=== PATIENT | female | born 1955 | race Caucasian/White ===

== ENCOUNTER 2018-07-24 08:59 | Outpatient (CLI) | payer BC, SELFPAY ==
--- NOTE | 2018-07-24 08:54 | DI.RAD_ITS ---
SYMPTOM/DIAGNOSIS: RIGHT FOOT/HEEL PAIN RIGHT FOOT: No fracture or dislocation is seen. There is slight spur at the Achilles insertion on the calcaneus. There are no significant degenerative changes. IMPRESSION: No acute abnormality.
== END 2018-07-24 09:19 ==
PROVIDERS: Visit Provider Orthopaedic Surgery
DX: M79.671 Pain in right foot (principal); M77.31 Calcaneal spur, right foot
CPT/HCPCS: 73630

== ENCOUNTER 2019-03-26 00:44 | Outpatient (CLI) | payer BC, SELFPAY ==
--- NOTE | 2019-03-26 11:30 | DI.MAMMO_ITS ---
SYMPTOMS/DIAGNOSIS: SCREENING, Z12.31 MAMMOGRAM: Mammograms were interpreted according to the usual protocol including computer analysis with CAD system, tomosynthesis and C view imaging. The breasts are of moderate density with fairly symmetrical distribution of fibroglandular tissue. No dominant mass or clumped microcalcification is identified in either breast. The current examination is compared with previous examinations including July 2015 and there has been no gross interval change in appearance in comparison with the previous studies. CONCLUSION: No specific evidence of malignancy at this time. Routine screening examinations are suggested at yearly intervals in this age group according to the ACS/ACR guidelines. Category I. Breast density Category B. MQSA ASSESSMENT OF FINDINGS: Negative. Category 1. Patient will receive a letter notifying them of these results. BI-RADS category B. There are scattered areas of fibroglandular density.
== END 2019-03-26 01:04 ==
DX: Z12.31 Encounter for screening mammogram for malignant neoplasm of breast (principal)
CPT/HCPCS: 77063; 77067

== ENCOUNTER 2019-03-26 01:28 | Outpatient (CLI) | payer BC, SELFPAY ==
[2019-03-26 11:56] LABS: ALT 43 U/L (12-78); AST 24 U/L (15-37); Albumin 3.8 g/dL (3.4-5.0); Alkaline Phosphatase 108 U/L (46-116); Anion Gap 6.8 mmol/L (3-11); BUN 13 mg/dL (7-18); Bilirubin, Total 0.4 mg/dL (0.2-1.0); CO2 29.2 mmol/L (21.0-32.0); CREATININE 0.73 mg/dL (0.55-1.02); Calcium 9.1 mg/dL (8.5-10.1); Chloride 102 mmol/L (98-107); Glucose 111 mg/dL (70-100); Potassium 4.7 mmol/L (3.5-5.1); Sodium 138 mmol/L (136-145); TSH (W/Ref FT4) 0.77 uIU/mL (0.36-3.74); Total Protein 7.1 g/dL (6.4-8.2)
== END 2019-03-26 01:48 ==
DX: E03.9 Hypothyroidism, unspecified (principal); G47.00 Insomnia, unspecified; G89.29 Other chronic pain; K21.9 Gastro-esophageal reflux disease without esophagitis; M54.5 Low back pain; Z00.00 Encounter for general adult medical examination without abnormal findings
CPT/HCPCS: 36415; 80053; 84443

== ENCOUNTER 2020-03-25 02:53 | Outpatient (CLI) | payer BC, SELFPAY ==
[2020-03-25 12:04] LABS: ALT 29 U/L (14-59); AST 23 U/L (15-37); Albumin 3.8 g/dL (3.4-5.0); Alkaline Phosphatase 92 U/L (46-116); Anion Gap 6.4 mmol/L (3-11); BUN 7 mg/dL (7-18); Bilirubin, Total 0.4 mg/dL (0.2-1.0); CO2 29.6 mmol/L (21.0-32.0); Chloride 103 mmol/L (98-107); Glucose 103 mg/dL (74-106); Potassium 4.1 mmol/L (3.5-5.1); Sodium 139 mmol/L (136-145); TSH (W/Ref FT4) 0.63 uIU/mL (0.36-3.74); Total Protein 6.9 g/dL (6.4-8.2)
== END 2020-03-25 03:13 ==
DX: E03.9 Hypothyroidism, unspecified (principal); G47.00 Insomnia, unspecified; Z00.00 Encounter for general adult medical examination without abnormal findings
CPT/HCPCS: 36415; 80053; 83036; 84443

== ENCOUNTER 2020-06-12 09:56 | Day surgery (SDC) | payer BC, SELFPAY ==
[2020-06-12 10:08] VITALS: BP 118/77; PULSE 70; RESP 16; TEMP 36.5; O2SAT 100
--- NOTE | 2020-06-12 10:29 | W.PM.DSUDISC ---
Discharge Plan Disposition Patient Disposition: HOME Condition: Good Discharge Details Reason For Visit: colon Attending Provider: Rosenda Kinney Primary Care Provider: Kayley Price Home Meds and New Rx's Prescriptions: Continued cbd See Rx Instructions .ROUTE .COMPLEX RF: 0 estradiol 0.01 % (0.1 mg/gram) cream 1 gm VG QWEEK Qty: 42.5 RF: 2 levothyroxine 88 mcg tablet 88 mcg PO DAILY Qty: 90 RF: 4 eye promise See Rx Instructions .ROUTE .COMPLEX RF: 0 albuterol sulfate [ProAir HFA] 90 mcg/actuation HFA aerosol inhaler 1 - 2 puff Inhalation Q4H PRN Qty: 6.7 RF: 2 Discontinued polyethylene glycol 3350 17 gram/dose powder 238 g PO ONCE Qty: 238 RF: 0 bisacodyl [Dulcolax (bisacodyl)] 5 mg tablet,delayed release (DR/EC) 5 mg PO ONCE Qty: 4 RF: 0 Discharge Instructions Additional Instructions: Findings: normal scope Follow up:repeat in 10 yrs time Please call if you develop: fevers >101.5 Nausea or Vomiting Abdominal pain that is not transient DAY SURGERY UNIT POST COLONOSCOPY INSTRUCTIONS 1. Because there will be medication in your system for the next 24 hours, you may feel a little sleepy. Your coordination will be affected. Therefore: a. Do not drive or operate dangerous equipment for 24 hours. b. Do not drink alcohol beverages for 24 hours (not even beer). c. Plan to go home and rest for the day. 2. Generally there are no restrictions on your activity after a day or so has gone by, but you may feel a bit fatigued for a few days. 3 After you arrive home you may have a light meal and return to a normal diet as you can tolerate it without feeling sick to your stomach. 4. After surgery, you may feel pain or discomfort. This should be only transient, but if it persists please contact your doctor. 5. If there are any questions regarding the findings of your procedure, please feel free to contact your doctor. 6. If you are unable to contact your doctor with a problem, contact the hospital at [phone]. 7. Continue all your regular medications unless directed otherwise. I understand the above instructions and have no questions. Signature of Patient or Responsible Adult Escort Date/Time Name of Responsible Adult Escort Signature of Nurse Date/Time Activity:: No heavy lifting or strenuous activity x24 hours Diet:: Small light meals x24 hours Discharge Orders Discharge Orders: Discharge Order (Routine); Ordered 06/12/20 Ordered By: Rosenda Kinney DS: Diagnosis Discharge Diagnosis (1) Colon cancer screening: Status: Acute
[2020-06-12] MEDS: Lactated Ringers 1,000 ML 80 ML IV (10:31)
--- NOTE | 2020-06-12 10:33 | W.COLOREPORT ---
Date of service: 06/12/20 Time of Service: 10:33 Colonoscopy Report Date of procedure: 06/12/20 Pre-op diagnosis general: CRC screen Post-op diagnosis procedure note: same Surgeon: Rosenda Kinney Anesthesia proc note operative: GETA Estimated blood loss (mL): 0 Pathology: none sent Complications: None Disposition: same day Prep: Miralax/Dulcolax Retraction Time: 10 mins Procedure Description: After informed consent was obtained the patient was taken to the procedure room and placed in a left decubitous position. Monitors were applied and a time out was done. The patients name, date of , procedure, allergies to medications and metal in their body was reviewed. The patient was then sedated. Once sedated and comfortable a rectal exam was done. External exam was normal. Internal exam revealed a normal sphincter tone and no palpable masses. The scope was then introduced and retrofelexed. No internal hemorrhoids were identified. The scope was then advanced to the cecum w/out difficulty. The TI and appendiceal orifice were identified. The prep was good The scope was then slowly retracted over 10 minutes back into the rectum. No polyps AVMs or diverticula. The mucosa was pink and healthy. The scope was removed and the patient was woken up and taken back to Same day surgery in stable condition. The patient tolerated the procedure well and there were no immediate complications. Follow up: The patient should follow up in 10 years unless they develop changes in bowel habits or other new gastrointestinal complaints.
[2020-06-12 11:45] VITALS: BP 118/80; PULSE 63; RESP 20; TEMP 36.7; O2SAT 98
== END 2020-06-12 12:15 | disposition home or self-care (01) ==
PROVIDERS: Visit Provider Surgery
PROC: 0DJD8ZZ Inspection of Lower Intestinal Tract, Via Natural or Artificial Opening Endoscopic (ICD-10-PCS; CPT 45378; principal; 2020-06-12 11:00)
DX: Z12.11 Encounter for screening for malignant neoplasm of colon (principal); K21.9 Gastro-esophageal reflux disease without esophagitis
CPT/HCPCS: 45378; J2001

== ENCOUNTER 2020-10-03 02:08 | Outpatient (CLI) | payer BC, SELFPAY ==
[2020-10-04 13:58] LABS: COVID-19 RT-PCR UVMMC Result Negative (Negative)
== END 2020-10-03 02:09 | disposition home or self-care (01) ==
LOC: LBO 02:08
DX: Z20.822 Contact with and (suspected) exposure to COVID-19 (principal)
CPT/HCPCS: U0003

== ENCOUNTER 2021-03-20 01:29 | Outpatient (CLI) | payer MEDICARE, BC, SELFPAY ==
[2021-03-20 13:17] LABS: ALT 36 U/L (14-59); AST 31 U/L (15-37); Albumin 3.7 g/dL (3.4-5.0); Alkaline Phosphatase 83 U/L (46-116); Anion Gap 5.7 mmol/L (3-11); BUN 13 mg/dL (7-18); Bilirubin, Total 0.5 mg/dL (0.2-1.0); CO2 30.3 mmol/L (21.0-32.0); CREATININE 0.7 mg/dL (0.55-1.02); Calculated LDL 143 mg/dL (<100); Chloride 104 mmol/L (98-107); Cholesterol 240 mg/dL (<200); Glucose 97 mg/dL (74-106); HDL Cholesterol 76 mg/dL (40-60); Sodium 140 mmol/L (136-145); TSH (W/Ref FT4) 1.89 uIU/mL (0.36-3.74); Total Protein 6.8 g/dL (6.4-8.2); Triglyceride 108 mg/dL (<150)
== END 2021-03-20 01:30 | disposition home or self-care (01) ==
LOC: LOS 01:29
DX: Z00.00 Encounter for general adult medical examination without abnormal findings (principal); I10 Essential (primary) hypertension; E03.9 Hypothyroidism, unspecified; G47.00 Insomnia, unspecified; K21.9 Gastro-esophageal reflux disease without esophagitis; N95.2 Postmenopausal atrophic vaginitis
CPT/HCPCS: 36415; 80053; 80061; 84443

== ENCOUNTER 2021-03-30 14:38 | Outpatient (REF) | payer MEDICARE, BC, SELFPAY ==
--- NOTE | 2021-03-30 11:40 | PAPFT_PTH ---
PATIENT: Ingrid Duran LOC: [facility]#:[id number] AGE/SX: 65/F ROOM: RE03/30/[address]: Kayley Price APRN : 1955 BED: DIS: 03/30/2021 SPEC #: [id number] RECD: 03/30/21 17:48 STATUS: CARLOS REQ #: [id number] HOLLY: 03/30/21 11:[address]: Kayley Price DEPT: [facility] Cytology RECD BY: Amanda Leo Tissues: 1 - CX/ENDOCX FOR PAP SMEARS Procedures: PAP THIN PREP/UVM Screening Comments: [id number] (UNSATISFACTORY FOR EVALUATION)
== END 2021-03-30 14:39 | disposition home or self-care (01) ==
LOC: LBN 14:38
DX: Z12.4 Encounter for screening for malignant neoplasm of cervix (principal); R87.615 Unsatisfactory cytologic smear of cervix
CPT/HCPCS: 88142

== ENCOUNTER 2021-05-22 03:45 | Outpatient (CLI) | payer MEDICARE, BC, SELFPAY ==
--- NOTE | 2021-05-22 07:00 | DI.MAMMO_ITS ---
Exam(s) MAMMO SCREENING EXAM: MAMMO SCREENING CLINICAL HISTORY: screening,Z12.39 TECHNIQUE: Mammograms were interpreted according to the usual protocol including computer analysis w [facility] CAD system, tomosynthesis and C-view imaging. COMPARISON: FINDINGS: The breasts are heterogeneously dense. No dominant mass or clumped microcalcification is identified in either breast. The current examination is compared with previous examinations including April 03 and there has been no gross interval change in appearance in comparison with the prior studies. IMPRESSION: No specific evidence of malignancy at this time. Routine screening examinations are suggested at yea rly intervals in this age group according to the ACS ACR guidelines. BI-RADS Category 1 - Negative Breast Density - Category C - Heterogeneously dense
== END 2021-05-22 04:05 ==
DX: Z12.31 Encounter for screening mammogram for malignant neoplasm of breast (principal)
CPT/HCPCS: 77063; 77067

== ENCOUNTER 2021-07-10 13:09 | Outpatient (CLI) | payer MEDICARE, BC, SELFPAY ==
--- NOTE | 2021-07-10 13:00 | RT.EKG_ITS ---
APPROVED REPORT Exam: Resting ECG Reason for Exam: chest pain Patient Location: O HR:60 bpm ECG Measurements Heart Rate 60 AXIS AK 158 P 64 QRSd 82 QRS 45 QT 417 T 49 QTc 417 Conclusion Sinus rhythm...normal P axis, V-rate 60- 99 Normal Electrocardiogram
== END 2021-07-10 13:10 | disposition home or self-care (01) ==
LOC: DI.CM 13:10
PROVIDERS: Visit Provider Nurse Practitioner Family
DX: Z01.818 Encounter for other preprocedural examination (principal); R07.89 Other chest pain
CPT/HCPCS: 93010

== ENCOUNTER 2021-12-21 18:53 | Outpatient (REF) | payer MEDICARE, SELFPAY ==
[2021-12-23 11:48] LABS: COVID-19 RT-PCR UVMMC Result Negative (Negative)
== END 2021-12-21 18:54 | disposition home or self-care (01) ==
LOC: LBN 18:53
PROVIDERS: Visit Provider Family Medicine
DX: Z20.822 Contact with and (suspected) exposure to COVID-19 (principal); J06.9 Acute upper respiratory infection, unspecified
CPT/HCPCS: U0003; U0005

== ENCOUNTER 2022-08-18 05:07 | Outpatient (CLI) | payer MEDICARE, SELFPAY | END 2022-08-18 05:08 | disposition home or self-care (01) | LOC: LOS 05:08 | PROVIDERS: PCP Nurse Practitioner Family; Visit Provider Family Medicine | DX: E03.9 Hypothyroidism, unspecified (principal) | CPT/HCPCS: 36415; 84443 ==

== ENCOUNTER 2022-10-29 00:38 | Outpatient (CLI) | payer MEDICARE, SELFPAY ==
--- NOTE | 2022-10-29 07:15 | DI.RAD_ITS ---
Exam(s) XR CERVICAL SP COMP W FLEX/EXT EXAM: XR CERVICAL SP COMP W FLEX/EXT CLINICAL HISTORY: 6 weeks of neck pain,m54.2. TECHNIQUE: 2D digital imaging was performed. Seven images were obtained. AP, odontoid, lateral, flex ion, extension and bilateral oblique images were obtained. COMPARISON: No exams were available for comparison FINDINGS: The odontoid is intact. The lateral masses are well aligned. There is normal alignment of the cervi crystal spine. There is disc space narrowing at C4-5 and C5-C6. Small endplate osteophytes are seen from C3-4 through C5-C6. No acute fracture or subluxation is present. There is mild narrowing of the neur al foramen bilaterally at C4-C5. The cervical spine is straightened with flexion. No subluxation is seen. The prevertebral soft tissues are unremarkable. Lung apices are clear. IMPRESSION: Mild cervical spondylosis. DATA REPOSITORY: RADIATION DOSE DELIVERED:
== END 2022-10-29 00:58 ==
LOC: DI 00:39
PROVIDERS: PCP Nurse Practitioner Family; Visit Provider Nurse Practitioner Family
DX: M47.812 Spondylosis without myelopathy or radiculopathy, cervical region; M50.321 Other cervical disc degeneration at C4-C5 level; M50.322 Other cervical disc degeneration at C5-C6 level
CPT/HCPCS: 72052

== ENCOUNTER 2022-11-12 14:37 | Outpatient (REF) | payer MEDICARE, SELFPAY ==
--- NOTE | 2022-11-12 14:10 | PAPFT_PTH ---
PATIENT: Ingrid Duran LOC: [facility]#:[id number] AGE/SX: 66/F ROOM: RE11/12/[address]: Manuel Retana DNP : 1955 BED: DIS: 11/12/2022 SPEC #: [id number] RECD: 11/14/22 07:41 STATUS: CARLOS REQ #: [id number] HOLLY: 11/12/22 14:[address]: Manuel Prabhakar DEPT: [facility] Cytology RECD BY: Rhonda Johns Tissues: 1 - CX/ENDOCX FOR PAP SMEARS Procedures: PAP THIN PREP/UVM Screening HPV DNA PROBE Comments: [id number]
== END 2022-11-12 14:38 | disposition home or self-care (01) ==
LOC: LBN 14:37
PROVIDERS: PCP Nurse Practitioner Family; Visit Provider Nurse Practitioner Family
DX: Z11.51 Encounter for screening for human papillomavirus (HPV); Z01.419 Encounter for gynecological examination (general) (routine) without abnormal findings
CPT/HCPCS: 88142; 87624

== ENCOUNTER 2022-12-24 00:03 | Outpatient (CLI) | payer MEDICARE, SELFPAY ==
--- NOTE | 2022-12-24 08:00 | DI.MAMMO_ITS ---
Exam(s) MAMMO SCREENING EXAM: MAMMO SCREENING CLINICAL HISTORY: screening,Z12.39 TECHNIQUE: Mammograms were interpreted according to the usual protocol including computer analysis w [email or web address] CAD system, tomosynthesis and C-view imaging. COMPARISON: 2012 through 2020 FINDINGS: The breasts are composed of scattered fibroglandular densities, Breast Density category B. No suspicious masses or suspicious microcalcifications are seen. No skin thickening or abnormal axillary lymph nodes are seen. There has been no significant change from prior exams. IMPRESSION: BI-RADS Category 1, Negative mammogram Yearly screening mammography is recommended. Breast Density - Category B, scattered fibroglandular densities. A negative radiographic report should not delay biopsy if a dominant or clinically suspicious mass is present. Up to ten percent of cancers are not identified on mammography. A negative report may reinforce clinical impression. Adenosis and dense breasts may obscure an underlying neoplasm. False positive reports average 6 to 10%. Patient will receive a letter notifying them of these results.
--- NOTE | 2022-12-24 10:46 | DI.DEXA_ITS ---
Exam(s) XR DEXA BONE DENSITY W/WO TAWNY EXAM: XR DEXA BONE DENSITY W/WO TAWNY CLINICAL HISTORY: SCREENING FOR OSTEOPOROSIS IN POSTMENOPAUSAL WOMAN,Z78.0 TECHNIQUE: [employer] C densitometer analysis of left hip, lumbar spine and left forearm. Lat eral survey image of the thoracic and lumbar spine. COMPARISON: No exams were available for comparison FINDINGS: Lateral view of the thoracic and lumbar spine shows no evidence of compression fractures. Bone mineral density measurements of the lumbar spine correspond to a total T-score of -1.6, in the o steopenic range Bone mineral density measurements of the left hip correspond to a total T-score of -2.2. The femora l neck T-score is -2.3, in the osteopenic range.. The left forearm bone mineral density measurements correspond to a T-score of the distal 3rd of -2.7 , in the osteoporotic range.. IMPRESSION: Osteoporosis of the forearm. Osteopenia of the lumbar spine and left hip.
== END 2022-12-24 00:23 ==
LOC: DI 00:03
PROVIDERS: PCP Nurse Practitioner Family; Visit Provider Nurse Practitioner Family
DX: Z12.31 Encounter for screening mammogram for malignant neoplasm of breast (principal); Z78.0 Asymptomatic menopausal state
CPT/HCPCS: 77063; 77067; 77080

== ENCOUNTER 2023-11-14 13:36 | Outpatient (REF) | payer MEDICARE, SELFPAY ==
[2023-11-14 21:23] LABS: Abs Immature Grans 0.01 10^3/uL (0.0-0.06); Absolute Basophil Count 0.05 10^3/uL (0.0-0.2); Absolute Lymphocyte Count 2.25 10^3/uL (1.2-3.4); Absolute Neutrophil Count 2.77 10^3/uL (1.2-6.7); Basophils % 0.9; Eosinophils % 1.8; HCT 41.5 % (36.0-46.0); HGB 13.8 g/dL (11.2-15.7); Immature Grans % 0.2; Lymphocytes % 39.6; MCH 31.8 pg (27.0-33.0); MCHC 33.3 % (32.0-36.0); MCV 96 fL (80-95); MPV 9.5 fL (8.0-11.0); Monocytes % 8.8; Neutrophils % 48.7; Platelet Count 275 10^3/uL (130-400); RBC 4.34 10^6/uL (3.93-5.22); RDW 12.5 % (11.7-14.6); RDW-SD 44.7 fL; WBC 5.68 10^3/uL (4.4-10.8)
[2023-11-14 21:32] LABS: Anion Gap 6.5 mmol/L (3-11); BUN 15 mg/dL (7-18); CO2 28.5 mmol/L (21.0-32.0); CREATININE 0.7 mg/dL (0.55-1.02); Calcium 9.2 mg/dL (8.5-10.1); Chloride 106 mmol/L (98-107); ESR 8 mm/hr (0-30); Estimated GFR 94.73 (mL/min/1.73m2); Glucose 90 mg/dL (74-106); Potassium 4.3 mmol/L (3.5-5.1); Sodium 141 mmol/L (136-145)
[2023-11-14 21:53] LABS: C-Reactive Protein < 0.50 mg/dL (<or=0.5)
[2023-11-14 22:25] LABS: Vitamin D 25 Total 41.9 ng/mL (30-100)
[2023-11-15 18:46] LABS: HBs Antibody, Quant <3.1 mIU/mL (See Note); Hepatitis B Surface Ab Negative (See Note)
[2023-11-15 19:26] LABS: Hepatitis C Ab w Rflx HCV PCR Negative (Negative)
[2023-11-15 19:30] LABS: HIV-1/2 Ag & Ab Screen Negative (Negative)
[2023-11-16 08:19] LABS: Cyclic Citrullinated Peptide <2.5 U/mL (<5.0)
[2023-11-16 10:53] LABS: Lyme Ab w Rflx to Lyme Confirm Negative (Negative)
[2023-11-18 16:48] LABS: Anaplasma phagocytophilum Negative (Negative); B. miyamotoi PCR Negative (Negative); Babesia divergens/MO-1 Negative (Negative); Babesia duncani Negative (Negative); Babesia microti Negative (Negative); Ehrlichia chaffeensis Negative (Negative); Ehrlichia ewingii/canis Negative (Negative); Ehrlichia muris eauclairensis Negative (Negative)
== END 2023-11-14 13:37 | disposition home or self-care (01) ==
LOC: LBN 13:36
PROVIDERS: PCP Nurse Practitioner Family; Visit Provider Nurse Practitioner Family
DX: M25.59 Pain in other specified joint (principal); M81.0 Age-related osteoporosis without current pathological fracture; Z11.59 Encounter for screening for other viral diseases; Z11.4 Encounter for screening for human immunodeficiency virus [HIV]
CPT/HCPCS: 80048; 82306; 85652; 86200; 86706; 86803; 87389; 87798; 85025; 86140; 86618

== ENCOUNTER → 2023-11-22 03:55 | Outpatient (CLI) | payer MEDICARE, SELFPAY ==
--- NOTE | 2023-11-22 10:58 | DI.RAD_ITS ---
Exam(s) XR HIP LT COMPLETE AP PELVIS EXAM: XR HIP LT COMPLETE AP PELVIS CLINICAL HISTORY: LT HIP PAIN,M25.552. TECHNIQUE: 2D digital imaging was performed. Two views. COMPARISON: CR RT HIP COMPLETE AP PELVIS from 02/25/2015 FINDINGS: BONES: No acute fracture is present. No bony destructive lesion is seen. JOINTS: No dislocation present. Mild spurring at the right acetabulum. SI joints and pubic symphys is are unremarkable. SOFT TISSUE: Normal. IMPRESSION: Minimal degenerative changes. DATA REPOSITORY: RADIATION DOSE DELIVERED:
== END ==
PROVIDERS: PCP Nurse Practitioner Family; Visit Provider Nurse Practitioner Family
DX: M25.552 Pain in left hip (principal); M76.892 Other specified enthesopathies of left lower limb, excluding foot
CPT/HCPCS: 73502

== ENCOUNTER 2024-11-26 16:40 | Outpatient (REF) | payer MEDICARE, SELFPAY ==
[2024-11-26 21:38] LABS: Hemoglobin A1C 5.9 % (<5.7)
[2024-11-26 21:45] LABS: ALT 33 U/L (14-59); AST 20 U/L (15-37); Albumin 3.8 g/dL (3.4-5.0); Alkaline Phosphatase 105 U/L (46-116); Anion Gap 8.7 mmol/L (3-11); BUN 17 mg/dL (7-18); Bilirubin, Total 0.3 mg/dL (0.2-1.0); CO2 26.3 mmol/L (21.0-32.0); CREATININE 0.8 mg/dL (0.55-1.02); Calcium 8.9 mg/dL (8.5-10.1); Calculated LDL 88 mg/dL (<100); Chloride 104 mmol/L (98-107); Cholesterol 193 mg/dL (<200); Estimated GFR 80.21 (mL/min/1.73m2); Glucose 119 mg/dL (74-106); HDL Cholesterol 65 mg/dL (>or=50); Potassium 4.3 mmol/L (3.5-5.1); Sodium 139 mmol/L (136-145); TSH (W/Ref FT4) 2.13 uIU/mL (0.36-3.74); Total Protein 6.8 g/dL (6.4-8.2); Triglyceride 204 mg/dL (<150)
== END 2024-11-26 16:41 | disposition home or self-care (01) ==
LOC: LBN 16:40
PROVIDERS: PCP Nurse Practitioner Family; Visit Provider Nurse Practitioner Family
DX: E03.9 Hypothyroidism, unspecified (principal); R73.03 Prediabetes; E78.5 Hyperlipidemia, unspecified
CPT/HCPCS: 80053; 80061; 83036; 84443

== ENCOUNTER 2024-12-12 00:45 | Outpatient (CLI) | payer MEDICARE, SELFPAY ==
--- NOTE | 2024-12-12 07:30 | DI.CT_ITS ---
Exam(s) CT CHEST WO EXAM: CT CHEST WO CLINICAL HISTORY: low dose,personal h/o nicotine dependence,z87.891 TECHNIQUE: Imaging Protocol: Axial computed tomography images with coronal and sagittal reformatted images were created and reviewed. Low dose screening protocol. COMPARISON: No exams were available for comparison FINDINGS: Tracheobronchial tree: No bronchiectasis or mucus plugging. Mediastinum and Nella: No dominant adenopathy or fluid collection. Pulmonary parenchyma: No consolidation or dominant measurable mass. No visible emphysematous changes. No significant interstitial changes. Lung Nodules: 2 benign fissure associated nodules at the right minor fissure. Pleura: No effusion. No pneumothorax. Heart: The heart is not dilated. No coronary artery calcifications are seen. No pericardial effusion. Aorta: Thoracic aorta non-dilated. Upper abdomen: Unremarkable. Bones: Unremarkable for age. Soft Tissues: Unremarkable. IMPRESSION: No suspicious pulmonary nodules. Lung RADS Cat 1 - Negative: No nodules and definitely benign nodules Lung-RADS 1.0 CATEGORIES: Category 0 - Prior chest CT exam(s) being located for comparison. Category 1 - Annual screening in 12 months. No nodules or definitely benign nodules. Category 2 - Annual screening in 12 months. Benign appearance. Nodules with low likelihood of becomin g active cancer. Category 3 - 6-month follow-up. Probably benign. Short-term follow-up suggested. Nodules with low lik elihood of becoming active cancer. Category 4A - 3-month follow-up and CT/PET if >8 mm in size. Suspicious finding. Findings which requi re additional testing. Category 4B - Findings which require additional testing and tissue sampling. Category 4X - Category 3 or 4 nodules with additional features or imaging findings that increases the suspicion of malignancy. Modifier S- Potentially clinically significant findings (non lung cancer) RADIATION DOSE DELIVERED: !Error Total DLP 23.23mGy.cm Total DLP DATA REPOSITORY: All CT scans at this facility are submitted to the National Radiology Data Registry (NRDR) Dose Index Registry (DIR) with the [employer] (ACR). RADIATION OPTIMIZATION: All CT scans at this facility use at least one of these dose optimization te chniques: automated exposure control; mA and/or kV adjustment per patient size (includes targeted exa ms where dose is matched to clinical indication); or iterative reconstruction.
== END 2024-12-12 01:05 ==
LOC: DI 00:45
PROVIDERS: PCP Nurse Practitioner Family; Visit Provider Nurse Practitioner Family
DX: Z87.891 Personal history of nicotine dependence (principal); Z12.2 Encounter for screening for malignant neoplasm of respiratory organs
CPT/HCPCS: 71250

== ENCOUNTER 2025-02-21 11:35 | Outpatient (CLI) | payer MEDICARE, SELFPAY ==
--- NOTE | 2025-02-21 12:09 | DI.RAD_ITS ---
Exam(s) XR CHEST 2V PA LATERAL EXAM: XR CHEST 2V PA LATERAL CLINICAL HISTORY: eval pathology,?pneumonia, cough,r05.9. TECHNIQUE: 2D digital imaging was performed. COMPARISON: CT CT CHEST WO from 12/12/2024 FINDINGS: 2 views: Heart size is normal. The mediastinum is not widened. Right lung is clear. There are mild increased markings in left lower lobe retrocardiac region which may just be vascular. There is no confluent infiltrates seen on the lateral view. No pleural effusions. IMPRESSION: Mild left lower lobe increased markings which are probably vascular. Doubtful infiltrate. No pleural effusions. DATA REPOSITORY: RADIATION DOSE DELIVERED:
== END 2025-02-21 11:55 ==
LOC: DI 11:35
PROVIDERS: PCP Nurse Practitioner Family; Visit Provider Nurse Practitioner Family
DX: R05.9 Cough, unspecified (principal)
CPT/HCPCS: 71046